=== PATIENT | male | born 1995 | race African-American/Black ===

== ENCOUNTER 2017-06-13 18:27 | Emergency (ER) | payer MEDICAID, MEDICARE ==
[~2017-06-13] VITALS: Ht 172.7 cm; Wt 62.0 kg
[2017-06-14 02:33] VITALS: BP 123/74
== END 2017-06-14 04:12 | disposition home or self-care (01) ==
LOC: ER 18:27
DX: H10.32 Unspecified acute conjunctivitis, left eye (principal); J06.9 Acute upper respiratory infection, unspecified; F12.90 Cannabis use, unspecified, uncomplicated; Z87.891 Personal history of nicotine dependence
CPT/HCPCS: 71045; 99283

== ENCOUNTER 2020-04-25 13:59 | Emergency (ER) | payer MEDICARE ==
[~2020-04-25] VITALS: Ht 182.9 cm; Wt 85.0 kg
[2020-04-25] MEDS ORDERED: MORPHINE SULFATE 4 MG/ML CPJ (NOT FOR IM USE) IV ONE (14:15)
[2020-04-25] MEDS ORDERED: TETANUS, DIPHTHERIA, PERTUSSIS VAC/PF 0.5ML (>7YR OLD) IM ONE (14:15)
[2020-04-25] MEDS ORDERED: CEFAZOLIN 1000MG PREMIX 50 ML IV ONE (14:15)
[2020-04-25 17:14] VITALS: BP 142/95
== END 2020-04-25 17:18 | disposition home or self-care (01) ==
LOC: ER 14:35
DX: S91.031A Puncture wound without foreign body, right ankle, initial encounter (principal); X95.9XXA Assault by unspecified firearm discharge, initial encounter; Y93.89 Activity, other specified; Y92.524 Gas station as the place of occurrence of the external cause
CPT/HCPCS: 73610; 90471; 90715; 96365; 96375; 99284; J0690; J2270

== ENCOUNTER 2020-05-23 14:16 | Emergency (ER) | payer MEDICARE ==
[~2020-05-23] VITALS: Ht 177.8 cm; Wt 73.0 kg
[2020-05-23] MEDS ORDERED: LIDOCAINE HCL 1% 20ML VIAL (Pyxis) INJ INFIL ONE (14:45)
[2020-05-23] MEDS ORDERED: CEFTRIAXONE SODIUM 1 G/VIAL IM ONE (14:45)
[2020-05-23] MEDS ORDERED: IBUPROFEN 400MG TABLET PO ONE (14:45)
[2020-05-23] MEDS ORDERED: SULF1TAB48 MT (15:07)
[2020-05-23] MEDS ORDERED: IBUP-2028 MT (15:07)
[2020-05-23] MEDS ORDERED: CEPH500C2 MT (15:07)
[2020-05-23 15:30] VITALS: BP 128/61
== END 2020-05-23 15:31 | disposition home or self-care (01) ==
LOC: ER 14:16
DX: L03.115 Cellulitis of right lower limb (principal)
CPT/HCPCS: 73630; 96372; 99283; J0696; J3490

== ENCOUNTER 2023-07-01 23:05 | Emergency (ER) | payer MEDICARE ==
[~2023-07-01] VITALS: Ht 182.9 cm; Wt 77.0 kg
[~2023-07-01 23:05] MED LIST: CEPH500C2 MT; IBUP-2028 MT; SULF1TAB48 MT
[2023-07-01 23:49] VITALS: BP 129/78; PULSE 68; RESP 16; TEMP 98.2; O2SAT 99
[2023-07-02] MEDS ORDERED: OCUFLX EACHEYE (05:55)
[2023-07-02] MEDS ORDERED: KETO-98 EACHEYE (05:55)
== END 2023-07-02 07:03 | disposition home or self-care (01) ==
LOC: ER 23:05
DX: B34.9 Viral infection, unspecified (principal); F12.90 Cannabis use, unspecified, uncomplicated; Z98.890 Other specified postprocedural states
CPT/HCPCS: 96365; 99283

== ENCOUNTER 2024-12-31 12:50 | Emergency (ER) | payer OTHER ==
[~2024-12-31] VITALS: Ht 177.8 cm; Wt 73.0 kg
[~2024-12-31 12:50] MED LIST changes: +KETO-98 EACHEYE; +OCUFLX EACHEYE
[2024-12-31 12:59] VITALS: O2SAT 100
[2024-12-31] MEDS: KETOROLAC 15MG/ML VIAL IM ONE (14:47)
[2024-12-31] MEDS ORDERED: NAPR-1176 MT (15:48)
[2024-12-31 16:45] VITALS: BP 120/70; PULSE 71; RESP 15; TEMP 36.9; O2SAT 100
== END 2024-12-31 16:46 | disposition home or self-care (01) ==
LOC: ER 13:07
DX: R07.89 Other chest pain (principal); F12.90 Cannabis use, unspecified, uncomplicated; Z79.1 Long term (current) use of non-steroidal anti-inflammatories (NSAID)
CPT/HCPCS: 99283; 71045; 93005; 96372; J1885